=== PATIENT | male | born 1980 ===

== ENCOUNTER 2020-12-02 17:13 | Inpatient (IN) ==
[2020-12-02 17:53] LABS: Basophils % 0.1 % (0.0-0.8); Eosinophils % 0.1 % (0.00-10.9); Hematocrit 27.5 VOL% (42.0-52.0); Hemoglobin 10.2 GM/DL (14.0-18.0); Immature Granulocytes % 0.9 %; Lymphocytes # 0.8 10*3/uL (1.4-4.0); Lymphocytes % 7.1 % (21.2-54.2); Mean Corpuscular HGB Conc 37.1 GM/DL (32-36); Mean Corpuscular Volume 98.2 FL (87-102); Monocytes % 8.1 % (1.7-12.7); NRBC # 0.07 10*3/uL; Neutrophils % 83.7 % (38.7-73.9); Platelet Count 127 T/CUMM (130-400); Red Cell Distribution Width 11.9 % (9.3-17.3); White Blood Count 10.8 T/CUMM (4-12)
[2020-12-02 18:07] LABS: Alanine Aminotransferase 76 U/L (16-61); Albumin 1.7 G/DL (3.4-5.0); Alkaline Phosphatase 230 U/L (45-117); Aspartate Amino Transferase 231 U/L (0-37); Blood Urea Nitrogen 7 MG/DL (7-18); Calcium 7.2 MG/DL (8.5-10.1); Carbon Dioxide 13 MMOL/L (21-32); Estimated Glom Filtration Rate 131 ML/MIN; Glucose 87 MG/DL (74-106); Osmolality,Calculated 212.2 MOS/KG (273-304); Potassium 4.8 MMOL/L (3.5-5.1); Total Protein 6.5 G/DL (6.4-8.3)
[2020-12-02 18:10] LABS: Sodium 106 MMOL/L (136-145)
[2020-12-02] MEDS ORDERED: LEVOFLOXACIN INJ 500 MG in PREMIX 1 EACH IV STA (18:26)
[2020-12-02] MEDS ORDERED: THIAMINE INJ 100 MG, FOLIC ACID INJ 1 MG, MAGNESIUM SULF INJ 2 GM, MULTIVITAMIN INJ 10 ... IV ONE (18:27)
[2020-12-02] MEDS ORDERED: ACETAMINOPHEN 325 MG TABLET PO PRN (18:45)
[2020-12-02] MEDS ORDERED: ONDANSETRON 4 MG/2 ML VIAL IV PRN (18:45)
[2020-12-02] MEDS ORDERED: ALBUTEROL 2.5 MG/3 ML NEB RESP TX PRN (18:45)
[2020-12-02] MEDS ORDERED: SODIUM CHLORIDE 3% INJ 500 ML IV SCH (19:00)
[2020-12-02] MEDS ORDERED: LORazepam 2 MG/1 ML VIAL IV PRN (19:15)
[2020-12-02 19:27] LABS: Calcium 7.4 MG/DL (8.5-10.1); Potassium 4.1 MMOL/L (3.5-5.1)
[2020-12-02] MEDS: SODIUM CHLORIDE 0.9% 1,000 ML IV SCH (19:30)
[2020-12-02] MEDS: PANTOPRAZOLE 40 MG VIAL IV SCH (19:33)
[2020-12-02] MEDS ORDERED: HYDROCORTISONE 100 MG VIAL IV ONE (19:45)
[2020-12-02 20:30] LABS: ABG Base Excess -9.7 MMOL/L (-2.5-2.5); ABG HCO3 16.6 MMOL/L (20-26); ABG Oxygen Saturation 95.8 % (95-100); ABG PH 7.416 (7.35-7.45); ABG TCO2 12.4 MMOL/L (23-27)
[2020-12-02 21:28] LABS: Calcium 7.5 MG/DL (8.5-10.1); Osmolality,Calculated 220.6 MOS/KG (273-304); Potassium 4.1 MMOL/L (3.5-5.1)
[2020-12-02 23:50] LABS: Calcium 6.9 MG/DL (8.5-10.1); Osmolality,Calculated 218.7 MOS/KG (273-304); Potassium 4.5 MMOL/L (3.5-5.1)
[2020-12-03] MEDS: chlordiazePOXIDE 25 MG CAPSULE PO SCH ×5 (00:47→23:25)
[2020-12-03] MEDS ORDERED: DESMOPRESSIN 4 MCG/1 ML AMP SUBCUT SCH (01:30)
[2020-12-03 01:35] LABS: Calcium 7.3 MG/DL (8.5-10.1); Osmolality,Calculated 216.9 MOS/KG (273-304); Potassium 4.3 MMOL/L (3.5-5.1)
[2020-12-03 03:43] LABS: Basophils % 0.1 % (0.0-0.8); Hematocrit 27.2 VOL% (42.0-52.0); Immature Granulocytes % 0.7 %; Immature Granulocytes Absolute 0.07 #; Lymphocytes # 0.5 10*3/uL (1.4-4.0); Lymphocytes % 5.3 % (21.2-54.2); Mean Corpuscular HGB Conc 36.8 GM/DL (32-36); Mean Corpuscular Volume 96.1 FL (87-102); Monocytes % 9.8 % (1.7-12.7); NRBC # 0.06 10*3/uL; Neutrophils % 84.1 % (38.7-73.9); Platelet Count 123 T/CUMM (130-400); Red Blood Count 2.83 MC/CUMM (3.8-5.5)
[2020-12-03 03:57] LABS: Calcium 7.3 MG/DL (8.5-10.1); Osmolality,Calculated 216.9 MOS/KG (273-304); Potassium 3.9 MMOL/L (3.5-5.1)
[2020-12-03 04:00] LABS: Hypochromasia 1+; Macrocytosis Slight
[2020-12-03 04:01] LABS: Platelet Estimate Adequate
[2020-12-03 04:07] LABS: PT Patient Result 30.5 SECS (9.8-11.9)
[2020-12-03] MEDS: HYDROCORTISONE 100 MG VIAL IV SCH ×3 (05:18→19:52)
[2020-12-03 05:52] LABS: Calcium 7.7 MG/DL (8.5-10.1); Osmolality,Calculated 216.9 MOS/KG (273-304); Potassium 4.2 MMOL/L (3.5-5.1)
[2020-12-03 06:27] LABS: Albumin 1.6 G/DL (3.4-5.0); Bilirubin,Total 8.8 MG/DL (0.2-1.0); Calcium 7.5 MG/DL (8.5-10.1); Total Protein 6.3 G/DL (6.4-8.3)
[2020-12-03 06:32] LABS: Osmolality,Calculated 216.9 MOS/KG (273-304)
[2020-12-03 06:33] LABS: Potassium 4.2 MMOL/L (3.5-5.1)
[2020-12-03 08:33] LABS: Calcium 7.3 MG/DL (8.5-10.1); Osmolality,Calculated 220.6 MOS/KG (273-304); Potassium 4.3 MMOL/L (3.5-5.1)
[2020-12-03] MEDS: FOLIC ACID 1 MG TABLET PO SCH (10:30)
[2020-12-03] MEDS: THIAMINE 100 MG TABLET PO SCH (10:30)
[2020-12-03] MEDS: SODIUM CHLORIDE 0.9% 1,000 ML IV SCH (11:21)
[2020-12-03] MEDS: PHYTONADIONE 5 MG/5 ML ORAL.SYR PO SCH (12:45)
[2020-12-03] MEDS ORDERED: SODIUM CHLORIDE 0.9% 1,000 ML IV SCH (15:00)
[2020-12-03] MEDS ORDERED: FUROSEMIDE 40 MG/4 ML VIAL IV ONE (16:32)
[2020-12-03] MEDS: PANTOPRAZOLE 40 MG VIAL IV SCH (18:13)
[2020-12-04 04:29] LABS: INR 2.5; PT Patient Result 25.3 SECS (9.8-11.9)
[2020-12-04] MEDS: HYDROCORTISONE 100 MG VIAL IV SCH ×2 (04:31→16:30)
[2020-12-04 04:45] LABS: Calcium 7.2 MG/DL (8.5-10.1); Osmolality,Calculated 223.5 MOS/KG (273-304); Potassium 4.5 MMOL/L (3.5-5.1)
[2020-12-04] MEDS: chlordiazePOXIDE 25 MG CAPSULE PO SCH ×3 (06:28→19:03)
[2020-12-04] MEDS: THIAMINE 100 MG TABLET PO SCH (08:04)
[2020-12-04] MEDS: PHYTONADIONE 5 MG/5 ML ORAL.SYR PO SCH (08:04)
[2020-12-04] MEDS: FOLIC ACID 1 MG TABLET PO SCH (08:04)
[2020-12-04 11:20] LABS: Hepatitis B Core IgM Quant 0.14 Index; Hepatitis B Surface Ag Quant < 0.10 Index; Hepatitis B Surface Ag Result Non-Reactive (NonReactive); Hepatitis C Virus Ab Quant 0.24 Index; Hepatitis C Virus Ab Result Non-Reactive (NonReactive)
[2020-12-04] MEDS: PANTOPRAZOLE 40 MG VIAL IV SCH (19:02)
[2020-12-05] MEDS: chlordiazePOXIDE 25 MG CAPSULE PO SCH ×4 (00:51→17:33)
[2020-12-05 03:26] LABS: INR 2.1; PT Patient Result 21.7 SECS (9.8-11.9)
[2020-12-05 04:31] LABS: Albumin 1.4 G/DL (3.4-5.0); Bilirubin,Total 10.6 MG/DL (0.2-1.0); Calcium 7.7 MG/DL (8.5-10.1); Osmolality,Calculated 226.3 MOS/KG (273-304); Potassium 4.2 MMOL/L (3.5-5.1)
[2020-12-05] MEDS: HYDROCORTISONE 100 MG VIAL IV SCH ×2 (04:50→15:47)
[2020-12-05] MEDS: PHYTONADIONE 5 MG/5 ML ORAL.SYR PO SCH (08:22)
[2020-12-05] MEDS: FOLIC ACID 1 MG TABLET PO SCH (08:22)
[2020-12-05] MEDS: THIAMINE 100 MG TABLET PO SCH (08:22)
[2020-12-05 15:43] LABS: Antinuclear Ab, S 0.2 U
[2020-12-05] MEDS: PANTOPRAZOLE 40 MG VIAL IV SCH (18:13)
[2020-12-06] MEDS: chlordiazePOXIDE 25 MG CAPSULE PO SCH ×5 (00:24→23:34)
[2020-12-06] MEDS: HYDROCORTISONE 100 MG VIAL IV SCH ×2 (05:43→16:47)
[2020-12-06] MEDS: FOLIC ACID 1 MG TABLET PO SCH (08:47)
[2020-12-06] MEDS: THIAMINE 100 MG TABLET PO SCH (08:47)
[2020-12-06 10:58] LABS: Basophils % 0.1 % (0.0-0.8); Eosinophils % 0.4 % (0.00-10.9); Hematocrit 28.1 VOL% (42.0-52.0); Hemoglobin 10.2 GM/DL (14.0-18.0); Immature Granulocytes % 1.3 %; Immature Granulocytes Absolute 0.14 #; Lymphocytes # 0.7 10*3/uL (1.4-4.0); Lymphocytes % 6.3 % (21.2-54.2); Mean Corpuscular HGB Conc 36.3 GM/DL (32-36); Mean Corpuscular Volume 99.3 FL (87-102); Mean Platelet Volume 9.3 FL (9.6-12.0); Monocytes % 12.1 % (1.7-12.7); NRBC # 0.09 10*3/uL; Neutrophils % 79.8 % (38.7-73.9); Platelet Count 102 T/CUMM (130-400); Red Blood Count 2.83 MC/CUMM (3.8-5.5); Red Cell Distribution Width 12.7 % (9.3-17.3)
[2020-12-06 11:21] LABS: Albumin 1.4 G/DL (3.4-5.0); Bilirubin,Total 10.8 MG/DL (0.2-1.0); Calcium 7.9 MG/DL (8.5-10.1); Osmolality,Calculated 231.9 MOS/KG (273-304); Potassium 4.2 MMOL/L (3.5-5.1); Total Protein 5.9 G/DL (6.4-8.3)
[2020-12-06] MEDS: PANTOPRAZOLE 40 MG VIAL IV SCH (18:14)
[2020-12-07] MEDS: HYDROCORTISONE 100 MG VIAL IV SCH ×2 (05:13→16:22)
[2020-12-07] MEDS: chlordiazePOXIDE 25 MG CAPSULE PO SCH ×3 (05:14→18:15)
[2020-12-07 05:15] LABS: Risk Ratio 4.73; VLDL CHOLESTEROL 18.8 MG/DL
[2020-12-07] MEDS: THIAMINE 100 MG TABLET PO SCH (08:11)
[2020-12-07] MEDS: FOLIC ACID 1 MG TABLET PO SCH (08:11)
[2020-12-07 08:23] LABS: Basophils % 0.2 % (0.0-0.8); Eosinophils % 0.3 % (0.00-10.9); Hematocrit 30.7 VOL% (42.0-52.0); Hemoglobin 10.5 GM/DL (14.0-18.0); Immature Granulocytes Absolute 0.23 #; Lymphocytes # 0.9 10*3/uL (1.4-4.0); Lymphocytes % 7.7 % (21.2-54.2); Mean Corpuscular HGB Conc 34.2 GM/DL (32-36); Mean Corpuscular Volume 106.2 FL (87-102); Mean Platelet Volume 9.5 FL (9.6-12.0); Monocytes % 13.4 % (1.7-12.7); NRBC # 0.07 10*3/uL; Neutrophils % 76.4 % (38.7-73.9); Platelet Count 92 T/CUMM (130-400); Red Blood Count 2.89 MC/CUMM (3.8-5.5); Red Cell Distribution Width 13.3 % (9.3-17.3); White Blood Count 11.8 T/CUMM (4-12)
[2020-12-07 08:34] LABS: Osmolality,Calculated 237.5 MOS/KG (273-304); Potassium 4.3 MMOL/L (3.5-5.1)
[2020-12-07 11:50] LABS: Calcium 7.7 MG/DL (8.5-10.1); Osmolality,Calculated 240.3 MOS/KG (273-304); Potassium 4.5 MMOL/L (3.5-5.1)
[2020-12-07] MEDS: THIAMINE INJ 100 MG, FOLIC ACID INJ 1 MG, MULTIVITAMIN INJ 10 ML in DEXTROSE 5% NACL 0.... IV SCH (13:55)
[2020-12-07] MEDS: PANTOPRAZOLE 40 MG VIAL IV SCH (18:15)
[2020-12-08] MEDS: chlordiazePOXIDE 25 MG CAPSULE PO SCH ×4 (00:26→18:01)
[2020-12-08] MEDS: HYDROCORTISONE 100 MG VIAL IV SCH ×2 (03:51→16:28)
[2020-12-08 04:20] LABS: Basophils % 0.1 % (0.0-0.8); Eosinophils % 0.4 % (0.00-10.9); Hematocrit 27.1 VOL% (42.0-52.0); Immature Granulocytes % 1.9 %; Immature Granulocytes Absolute 0.17 #; Lymphocytes # 0.7 10*3/uL (1.4-4.0); Lymphocytes % 7.8 % (21.2-54.2); Mean Corpuscular HGB Conc 36.9 GM/DL (32-36); Mean Corpuscular Volume 98.9 FL (87-102); Mean Platelet Volume 9.8 FL (9.6-12.0); Monocytes % 13.5 % (1.7-12.7); NRBC # 0.03 10*3/uL; Neutrophils % 76.3 % (38.7-73.9); Platelet Count 66 T/CUMM (130-400); Red Blood Count 2.74 MC/CUMM (3.8-5.5); Red Cell Distribution Width 13.5 % (9.3-17.3)
[2020-12-08 04:58] LABS: Calcium 7.4 MG/DL (8.5-10.1); Osmolality,Calculated 247.1 MOS/KG (273-304); Potassium 5.2 MMOL/L (3.5-5.1)
[2020-12-08] MEDS: FOLIC ACID 1 MG TABLET PO SCH (08:18)
[2020-12-08] MEDS: THIAMINE 100 MG TABLET PO SCH (08:18)
[2020-12-08] MEDS: THIAMINE INJ 100 MG, FOLIC ACID INJ 1 MG, MULTIVITAMIN INJ 10 ML in DEXTROSE 5% NACL 0.... IV SCH (12:17)
[2020-12-08] MEDS: POLYETHYLENE GLYCOL POWDER 17 GM PACK PO SCH (20:52)
[2020-12-08] MEDS: SODIUM BICARBONATE 650 MG TABLET PO SCH (20:52)
[2020-12-08] MEDS: PANTOPRAZOLE 40 MG VIAL IV SCH (20:54)
[2020-12-09] MEDS: chlordiazePOXIDE 25 MG CAPSULE PO SCH ×4 (00:16→17:16)
[2020-12-09] MEDS: HYDROCORTISONE 100 MG VIAL IV SCH ×2 (03:25→17:20)
[2020-12-09 03:57] LABS: Basophils % 0.1 % (0.0-0.8); Eosinophils % 0.1 % (0.00-10.9); Hematocrit 29.1 VOL% (42.0-52.0); Hemoglobin 10.3 GM/DL (14.0-18.0); Immature Granulocytes % 2.7 %; Immature Granulocytes Absolute 0.27 #; Lymphocytes # 0.8 10*3/uL (1.4-4.0); Lymphocytes % 8.4 % (21.2-54.2); Mean Corpuscular HGB Conc 35.4 GM/DL (32-36); Mean Corpuscular Volume 102.1 FL (87-102); Monocytes % 12.8 % (1.7-12.7); NRBC # 0.04 10*3/uL; Neutrophils % 75.9 % (38.7-73.9); Red Blood Count 2.85 MC/CUMM (3.8-5.5); Red Cell Distribution Width 13.7 % (9.3-17.3)
[2020-12-09 04:12] LABS: Calcium 7.6 MG/DL (8.5-10.1); Osmolality,Calculated 256.4 MOS/KG (273-304); Potassium 4.1 MMOL/L (3.5-5.1)
[2020-12-09 04:18] LABS: Platelet Count 77 T/CUMM (130-400)
[2020-12-09 04:29] LABS: Band Neutrophils 1 % (0-10); Eosinophils 1 % (0-10); Hypochromasia 1+; Lymphocytes 3 % (20-55); Microcytosis 1+; Platelet Estimate Decreased; Segmented Neutrophils 86 % (50-85); Total Cells Counted 100
[2020-12-09 07:45] LABS: INR 1.9
[2020-12-09] MEDS: SODIUM BICARBONATE 650 MG TABLET PO SCH (08:00)
[2020-12-09] MEDS: POLYETHYLENE GLYCOL POWDER 17 GM PACK PO SCH (08:01)
[2020-12-09] MEDS: THIAMINE 100 MG TABLET PO SCH (08:01)
[2020-12-09] MEDS: FOLIC ACID 1 MG TABLET PO SCH (08:02)
[2020-12-09 09:12] LABS: Albumin 1.4 G/DL (3.4-5.0); Bilirubin,Direct 7.39 MG/DL (0.0-0.20); Bilirubin,Indirect 2.2 MG/DL (0.0-1.0); Bilirubin,Total 9.6 MG/DL (0.2-1.0)
[2020-12-09] MEDS: THIAMINE INJ 100 MG, FOLIC ACID INJ 1 MG, MULTIVITAMIN INJ 10 ML in DEXTROSE 5% NACL 0.... IV SCH (14:30)
[2020-12-09] MEDS: PANTOPRAZOLE 40 MG VIAL IV SCH (22:18)
[2020-12-10] MEDS: SODIUM BICARBONATE 650 MG TABLET PO SCH ×3 (01:26→22:28)
[2020-12-10] MEDS: chlordiazePOXIDE 25 MG CAPSULE PO SCH ×2 (01:26→06:05)
[2020-12-10 04:15] LABS: Basophils % 0.3 % (0.0-0.8); Eosinophils % 0.4 % (0.00-10.9); Hematocrit 29.2 VOL% (42.0-52.0); Hemoglobin 10.7 GM/DL (14.0-18.0); Immature Granulocytes % 1.4 %; Immature Granulocytes Absolute 0.16 #; Lymphocytes # 0.9 10*3/uL (1.4-4.0); Lymphocytes % 7.8 % (21.2-54.2); Mean Corpuscular HGB Conc 36.6 GM/DL (32-36); Mean Corpuscular Volume 100.7 FL (87-102); Mean Platelet Volume 10.2 FL (9.6-12.0); Monocytes % 8.5 % (1.7-12.7); NRBC # 0.09 10*3/uL; Neutrophils % 81.6 % (38.7-73.9); Platelet Count 59 T/CUMM (130-400); Red Cell Distribution Width 14.5 % (9.3-17.3); White Blood Count 11.2 T/CUMM (4-12)
[2020-12-10 04:35] LABS: INR 1.9; PT Patient Result 19.5 SECS (9.8-11.9)
[2020-12-10 04:37] LABS: Hypochromasia 1+; Lymphocytes 3 % (20-55); Microcytosis 1+; Platelet Estimate Decreased; Segmented Neutrophils 89 % (50-85); Total Cells Counted 100
[2020-12-10 04:49] LABS: Albumin 1.3 G/DL (3.4-5.0); Bilirubin,Total 8.8 MG/DL (0.2-1.0); Calcium 7.5 MG/DL (8.5-10.1); Osmolality,Calculated 254.4 MOS/KG (273-304); Potassium 4.5 MMOL/L (3.5-5.1); Total Protein 5.7 G/DL (6.4-8.3)
[2020-12-10] MEDS: HYDROCORTISONE 100 MG VIAL IV SCH ×2 (05:23→17:17)
[2020-12-10] MEDS: POLYETHYLENE GLYCOL POWDER 17 GM PACK PO SCH (08:40)
[2020-12-10] MEDS: THIAMINE INJ 100 MG, FOLIC ACID INJ 1 MG, MULTIVITAMIN INJ 10 ML in DEXTROSE 5% NACL 0.... IV SCH (13:17)
[2020-12-10] MEDS ORDERED: PHYTONADIONE 5 MG/5 ML ORAL.SYR PO ONE (18:35)
[2020-12-10] MEDS ORDERED: PHYTONADIONE 10 MG/1 ML AMP SUBCUT ONE (20:28)
[2020-12-10] MEDS: PANTOPRAZOLE 40 MG VIAL IV SCH (22:26)
[2020-12-11] MEDS: HYDROCORTISONE 100 MG VIAL IV SCH ×2 (04:17→16:34)
[2020-12-11 05:52] LABS: Basophils % 0.3 % (0.0-0.8); Eosinophils % 0.3 % (0.00-10.9); Hematocrit 32.9 VOL% (42.0-52.0); Immature Granulocytes % 0.8 %; Lymphocytes % 8.1 % (21.2-54.2); Mean Corpuscular HGB Conc 33.4 GM/DL (32-36); Mean Platelet Volume 10.6 FL (9.6-12.0); Monocytes % 7.3 % (1.7-12.7); NRBC # 0.04 10*3/uL; Neutrophils % 83.2 % (38.7-73.9); Platelet Count 53 T/CUMM (130-400); Red Blood Count 2.99 MC/CUMM (3.8-5.5); Red Cell Distribution Width 15.4 % (9.3-17.3); White Blood Count 11.8 T/CUMM (4-12)
[2020-12-11 05:59] LABS: INR 1.9; PT Patient Result 19.3 SECS (9.8-11.9)
[2020-12-11 06:10] LABS: Albumin 1.2 G/DL (3.4-5.0); Bilirubin,Total 8.9 MG/DL (0.2-1.0); Calcium 7.8 MG/DL (8.5-10.1); Osmolality,Calculated 263.8 MOS/KG (273-304); Potassium 4.2 MMOL/L (3.5-5.1); Total Protein 5.7 G/DL (6.4-8.3)
[2020-12-11 07:00] LABS: Band Neutrophils 1 % (0-10); Lymphocytes 4 % (20-55); Platelet Estimate Decreased; Segmented Neutrophils 90 % (50-85); Total Cells Counted 100
[2020-12-11] MEDS: SODIUM BICARBONATE 650 MG TABLET PO SCH ×2 (08:03→22:46)
[2020-12-11] MEDS: POLYETHYLENE GLYCOL POWDER 17 GM PACK PO SCH (08:03)
[2020-12-11] MEDS: THIAMINE INJ 100 MG, FOLIC ACID INJ 1 MG, MULTIVITAMIN INJ 10 ML in DEXTROSE 5% NACL 0.... IV SCH (13:39)
[2020-12-11 14:17] LABS: Neutrophils,Peritoneal Fluid 79 %
[2020-12-11 16:33] LABS: RBC,Peritoneal Fluid < 1 T/CUMM
[2020-12-11] MEDS: PANTOPRAZOLE 40 MG VIAL IV SCH (22:46)
[2020-12-12] MEDS: HYDROCORTISONE 100 MG VIAL IV SCH ×2 (03:48→17:00)
[2020-12-12 05:41] LABS: Basophils % 0.1 % (0.0-0.8); Eosinophils % 0.2 % (0.00-10.9); Hematocrit 30.2 VOL% (42.0-52.0); Hemoglobin 10.6 GM/DL (14.0-18.0); Immature Granulocytes % 0.7 %; Immature Granulocytes Absolute 0.08 #; Lymphocytes # 0.9 10*3/uL (1.4-4.0); Lymphocytes % 7.4 % (21.2-54.2); Mean Corpuscular HGB Conc 35.1 GM/DL (32-36); Mean Corpuscular Volume 105.2 FL (87-102); Mean Platelet Volume 10.8 FL (9.6-12.0); Monocytes % 6.8 % (1.7-12.7); NRBC # 0.03 10*3/uL; Neutrophils % 84.8 % (38.7-73.9); Red Blood Count 2.87 MC/CUMM (3.8-5.5); Red Cell Distribution Width 15.6 % (9.3-17.3); White Blood Count 12.1 T/CUMM (4-12)
[2020-12-12 05:42] LABS: Platelet Count 49 T/CUMM (130-400)
[2020-12-12 06:06] LABS: Albumin 1.3 G/DL (3.4-5.0); Calcium 7.1 MG/DL (8.5-10.1); Potassium 4.1 MMOL/L (3.5-5.1); Total Protein 5.6 G/DL (6.4-8.3)
[2020-12-12 06:06] LABS: Albumin 1.3 G/DL (3.4-5.0); Bilirubin,Direct 6.31 MG/DL (0.0-0.20); Bilirubin,Indirect 2.7 MG/DL (0.0-1.0); Total Protein 5.5 G/DL (6.4-8.3)
[2020-12-12 06:22] LABS: Band Neutrophils 2 % (0-10); Lymphocytes 3 % (20-55); Metamyelocytes 1 %; Platelet Estimate Decreased; Segmented Neutrophils 90 % (50-85); Total Cells Counted 100
[2020-12-12] MEDS: POLYETHYLENE GLYCOL POWDER 17 GM PACK PO SCH (08:35)
[2020-12-12] MEDS: SODIUM BICARBONATE 650 MG TABLET PO SCH ×2 (08:35→20:50)
[2020-12-12] MEDS: THIAMINE INJ 100 MG, FOLIC ACID INJ 1 MG, MULTIVITAMIN INJ 10 ML in DEXTROSE 5% NACL 0.... IV SCH (12:19)
[2020-12-12] MEDS: CIPROFLOXACIN INJ 400 MG in PREMIX 1 EACH IV SCH (17:39)
[2020-12-12] MEDS: PANTOPRAZOLE 40 MG VIAL IV SCH (20:50)
[2020-12-13] MEDS: HYDROCORTISONE 100 MG VIAL IV SCH ×2 (03:08→17:06)
[2020-12-13] MEDS: CIPROFLOXACIN INJ 400 MG in PREMIX 1 EACH IV SCH ×2 (03:10→17:08)
[2020-12-13 05:36] LABS: Basophils % 0.1 % (0.0-0.8); Eosinophils % 0.1 % (0.00-10.9); Hematocrit 30.8 VOL% (42.0-52.0); Hemoglobin 10.6 GM/DL (14.0-18.0); Immature Granulocytes % 0.8 %; Immature Granulocytes Absolute 0.09 #; Lymphocytes # 0.5 10*3/uL (1.4-4.0); Lymphocytes % 4.1 % (21.2-54.2); Mean Corpuscular HGB Conc 34.4 GM/DL (32-36); Mean Corpuscular Volume 105.8 FL (87-102); Mean Platelet Volume 10.4 FL (9.6-12.0); Monocytes % 6.2 % (1.7-12.7); NRBC # 0.03 10*3/uL; Neutrophils % 88.7 % (38.7-73.9); Red Blood Count 2.91 MC/CUMM (3.8-5.5); Red Cell Distribution Width 15.9 % (9.3-17.3); White Blood Count 11.5 T/CUMM (4-12)
[2020-12-13 05:38] LABS: Platelet Count 31 T/CUMM (130-400)
[2020-12-13 05:58] LABS: Albumin 1.1 G/DL (3.4-5.0); Bilirubin,Total 8.7 MG/DL (0.2-1.0); Calcium 7.4 MG/DL (8.5-10.1); Osmolality,Calculated 277.1 MOS/KG (273-304); Potassium 4.4 MMOL/L (3.5-5.1); Total Protein 5.5 G/DL (6.4-8.3)
[2020-12-13 06:02] LABS: Band Neutrophils 2 % (0-10); Hypochromasia Slight; Lymphocytes 2 % (20-55); Macrocytosis Slight; Nucleated Red Blood Cells 1 (0-5); Platelet Estimate Decreased; Segmented Neutrophils 94 % (50-85); Total Cells Counted 100
[2020-12-13] MEDS: SODIUM BICARBONATE 650 MG TABLET PO SCH ×2 (09:29→21:41)
[2020-12-13] MEDS: LACTULOSE 20 GM/30 ML UDCUP PO SCH ×2 (09:29→21:40)
[2020-12-13] MEDS: POLYETHYLENE GLYCOL POWDER 17 GM PACK PO SCH (09:29)
[2020-12-13] MEDS: RIFAXIMIN 550 MG TABLET PO SCH ×2 (09:29→21:41)
[2020-12-13] MEDS ORDERED: SODIUM CHLORIDE 0.9% 1,000 ML IV ONE (12:06)
[2020-12-13] MEDS: THIAMINE INJ 100 MG, FOLIC ACID INJ 1 MG, MULTIVITAMIN INJ 10 ML in DEXTROSE 5% NACL 0.... IV SCH (13:37)
[2020-12-13] MEDS ORDERED: LORazepam 2 MG/1 ML VIAL IV ONE (15:46)
[2020-12-13] MEDS: PANTOPRAZOLE 40 MG VIAL IV SCH (21:41)
[2020-12-14] MEDS: CIPROFLOXACIN INJ 400 MG in PREMIX 1 EACH IV SCH ×2 (03:00→13:13)
[2020-12-14] MEDS: HYDROCORTISONE 100 MG VIAL IV SCH ×2 (05:16→15:06)
[2020-12-14 07:01] LABS: Basophils % 0.1 % (0.0-0.8); Eosinophils % 0.3 % (0.00-10.9); Hematocrit 30.5 VOL% (42.0-52.0); Hemoglobin 10.4 GM/DL (14.0-18.0); Immature Granulocytes % 0.8 %; Immature Granulocytes Absolute 0.07 #; Lymphocytes # 0.7 10*3/uL (1.4-4.0); Lymphocytes % 7.9 % (21.2-54.2); Mean Corpuscular HGB Conc 34.1 GM/DL (32-36); Monocytes % 9.4 % (1.7-12.7); NRBC # 0.02 10*3/uL; Neutrophils % 81.5 % (38.7-73.9); Red Blood Count 2.85 MC/CUMM (3.8-5.5); Red Cell Distribution Width 15.9 % (9.3-17.3); White Blood Count 8.7 T/CUMM (4-12)
[2020-12-14 07:06] LABS: INR 1.6; PT Patient Result 17.2 SECS (9.8-11.9)
[2020-12-14 07:11] LABS: Bilirubin,Total 8.8 MG/DL (0.2-1.0); Calcium 7.5 MG/DL (8.5-10.1); Osmolality,Calculated 278.8 MOS/KG (273-304); Total Protein 5.6 G/DL (6.4-8.3)
[2020-12-14 07:14] LABS: Platelet Count 26 T/CUMM (130-400)
[2020-12-14 07:25] LABS: Eosinophils 1 % (0-10); Hypochromasia 1+; Lymphocytes 5 % (20-55); Microcytosis 1+; Nucleated Red Blood Cells 1 (0-5); Platelet Estimate Decreased; Segmented Neutrophils 88 % (50-85); Total Cells Counted 100
[2020-12-14] MEDS: SODIUM BICARBONATE 650 MG TABLET PO SCH ×2 (09:25→21:10)
[2020-12-14] MEDS: LACTULOSE 20 GM/30 ML UDCUP PO SCH ×2 (09:26→21:10)
[2020-12-14] MEDS: POLYETHYLENE GLYCOL POWDER 17 GM PACK PO SCH (09:26)
[2020-12-14] MEDS: RIFAXIMIN 550 MG TABLET PO SCH ×2 (09:26→21:10)
[2020-12-14] MEDS: THIAMINE INJ 100 MG, FOLIC ACID INJ 1 MG, MULTIVITAMIN INJ 10 ML in DEXTROSE 5% NACL 0.... IV SCH (14:23)
[2020-12-14] MEDS: PANTOPRAZOLE 40 MG VIAL IV SCH (21:11)
[2020-12-15] MEDS: HYDROCORTISONE 100 MG VIAL IV SCH (04:00)
[2020-12-15] MEDS: CIPROFLOXACIN INJ 400 MG in PREMIX 1 EACH IV SCH ×2 (04:00→17:46)
[2020-12-15 05:52] LABS: Basophils % 0.1 % (0.0-0.8); Eosinophils % 0.2 % (0.00-10.9); Hemoglobin 9.9 GM/DL (14.0-18.0); Immature Granulocytes % 0.8 %; Immature Granulocytes Absolute 0.07 #; Lymphocytes # 0.6 10*3/uL (1.4-4.0); Lymphocytes % 6.6 % (21.2-54.2); Mean Corpuscular HGB Conc 34.1 GM/DL (32-36); Mean Corpuscular Volume 106.6 FL (87-102); Mean Platelet Volume 10.7 FL (9.6-12.0); Monocytes % 9.8 % (1.7-12.7); NRBC # 0.02 10*3/uL; Neutrophils % 82.5 % (38.7-73.9); Red Blood Count 2.72 MC/CUMM (3.8-5.5); Red Cell Distribution Width 15.5 % (9.3-17.3); White Blood Count 9.1 T/CUMM (4-12)
[2020-12-15 05:56] LABS: Platelet Count 23 T/CUMM (130-400)
[2020-12-15 06:19] LABS: Hypochromasia Slight; Lymphocytes 6 % (20-55); Microcytosis Slight; Platelet Estimate Decreased; Segmented Neutrophils 88 % (50-85); Total Cells Counted 100
[2020-12-15 06:30] LABS: Albumin 1.1 G/DL (3.4-5.0); Bilirubin,Total 8.4 MG/DL (0.2-1.0); Calcium 7.2 MG/DL (8.5-10.1); Potassium 4.2 MMOL/L (3.5-5.1); Total Protein 5.3 G/DL (6.4-8.3)
[2020-12-15] MEDS: LACTULOSE 20 GM/30 ML UDCUP PO SCH ×2 (09:58→21:14)
[2020-12-15] MEDS: POLYETHYLENE GLYCOL POWDER 17 GM PACK PO SCH (09:59)
[2020-12-15] MEDS: RIFAXIMIN 550 MG TABLET PO SCH ×2 (09:59→21:14)
[2020-12-15] MEDS: SODIUM BICARBONATE 650 MG TABLET PO SCH ×2 (09:59→21:14)
[2020-12-15 13:31] LABS: Folate 13.1 NG/ML (5.38-24.0); Vitamin B12 > 2000 PG/ML (211-911)
[2020-12-15] MEDS: methylPREDNISolone SOD SUC 125 MG/2 ML VIAL IV SCH (13:36)
[2020-12-15] MEDS: THIAMINE INJ 100 MG, FOLIC ACID INJ 1 MG, MULTIVITAMIN INJ 10 ML in DEXTROSE 5% NACL 0.... IV SCH (13:41)
[2020-12-15 13:49] LABS: Total Protein 5.5 G/DL (6.4-8.3)
[2020-12-15] MEDS: INSULIN REGULAR 100 UNIT/ML SUBCUT SCH ×2 (17:55→21:13)
[2020-12-15] MEDS: PANTOPRAZOLE 40 MG VIAL IV SCH (21:13)
[2020-12-16] MEDS: methylPREDNISolone SOD SUC 125 MG/2 ML VIAL IV SCH ×2 (00:12→12:44)
[2020-12-16] MEDS: INSULIN REGULAR 100 UNIT/ML SUBCUT SCH ×4 (00:12→18:26)
[2020-12-16] MEDS: CIPROFLOXACIN INJ 400 MG in PREMIX 1 EACH IV SCH ×2 (05:15→18:12)
[2020-12-16 05:50] LABS: Basophils % 0.1 % (0.0-0.8); Hematocrit 32.9 VOL% (42.0-52.0); Hemoglobin 10.8 GM/DL (14.0-18.0); Immature Granulocytes % 0.8 %; Immature Granulocytes Absolute 0.09 #; Lymphocytes # 0.2 10*3/uL (1.4-4.0); Lymphocytes % 1.3 % (21.2-54.2); Mean Corpuscular HGB Conc 32.8 GM/DL (32-36); Mean Corpuscular Volume 108.6 FL (87-102); Mean Platelet Volume 12.1 FL (9.6-12.0); Monocytes % 5.4 % (1.7-12.7); Neutrophils % 92.4 % (38.7-73.9); Red Blood Count 3.03 MC/CUMM (3.8-5.5); Red Cell Distribution Width 15.6 % (9.3-17.3)
[2020-12-16 05:54] LABS: Platelet Count 24 T/CUMM (130-400)
[2020-12-16 06:18] LABS: Band Neutrophils 1 % (0-10); Hypochromasia Slight; Lymphocytes 2 % (20-55); Microcytosis Slight; Platelet Estimate Decreased; Segmented Neutrophils 94 % (50-85); Total Cells Counted 100
[2020-12-16 06:19] LABS: Albumin 1.1 G/DL (3.4-5.0); Bilirubin,Total 8.6 MG/DL (0.2-1.0); Calcium 7.6 MG/DL (8.5-10.1); Osmolality,Calculated 295.7 MOS/KG (273-304); Potassium 4.5 MMOL/L (3.5-5.1); Total Protein 6.2 G/DL (6.4-8.3)
[2020-12-16 07:24] LABS: Total Protein (Chem) 5.5 G/DL (6.4-8.3)
[2020-12-16 07:25] LABS: Immunoglobulin A (Chem) 730 MG/DL (70-400); Immunoglobulin G (Chem) 1840 MG/DL (700-1600); Immunoglobulin M (Chem) 318 MG/DL (40-230)
[2020-12-16 09:40] LABS: Albumin (SPE) 1.8 G/DL (3.2-5.3); Albumin (SPE) Rel % 33.1 %; Alpha 1 (SPE) 0.2 G/DL (0.1-0.4); Alpha 1 (SPE) Rel % 3.5 %; Alpha 2 (SPE) 0.4 G/DL (0.4-1.0); Alpha 2 (SPE) Rel % 7.5 %; Beta (SPE) 0.4 G/DL (0.5-1.1); Gamma (SPE) 2.7 G/DL (0.7-1.7); Gamma (SPE) Rel % 48.9 %
[2020-12-16] MEDS: POLYETHYLENE GLYCOL POWDER 17 GM PACK PO SCH (10:06)
[2020-12-16] MEDS: RIFAXIMIN 550 MG TABLET PO SCH ×2 (10:06→22:23)
[2020-12-16] MEDS: LACTULOSE 20 GM/30 ML UDCUP PO SCH ×2 (10:06→22:23)
[2020-12-16] MEDS: SODIUM BICARBONATE 650 MG TABLET PO SCH ×2 (10:06→22:23)
[2020-12-16] MEDS: THIAMINE INJ 100 MG, FOLIC ACID INJ 1 MG, MULTIVITAMIN INJ 10 ML in DEXTROSE 5% NACL 0.... IV SCH (12:44)
[2020-12-16] MEDS: PANTOPRAZOLE 40 MG VIAL IV SCH (22:22)
[2020-12-16] MEDS: BACITRACIN OINT 0.9 GM PACK TOP SCH (22:23)
[2020-12-17] MEDS: methylPREDNISolone SOD SUC 125 MG/2 ML VIAL IV SCH ×2 (01:31→12:04)
[2020-12-17] MEDS: INSULIN REGULAR 100 UNIT/ML SUBCUT SCH ×5 (01:31→17:24)
[2020-12-17] MEDS: CIPROFLOXACIN INJ 400 MG in PREMIX 1 EACH IV SCH (03:31)
[2020-12-17 06:19] LABS: Basophils % 0.1 % (0.0-0.8); Hemoglobin 10.9 GM/DL (14.0-18.0); Immature Granulocytes % 0.6 %; Immature Granulocytes Absolute 0.08 #; Lymphocytes # 0.2 10*3/uL (1.4-4.0); Lymphocytes % 1.2 % (21.2-54.2); Mean Corpuscular HGB Conc 34.1 GM/DL (32-36); Mean Corpuscular Volume 108.8 FL (87-102); Mean Platelet Volume 12.7 FL (9.6-12.0); Monocytes % 6.1 % (1.7-12.7); Red Blood Count 2.94 MC/CUMM (3.8-5.5); Red Cell Distribution Width 16.1 % (9.3-17.3); White Blood Count 13.8 T/CUMM (4-12)
[2020-12-17 06:21] LABS: Platelet Count 26 T/CUMM (130-400)
[2020-12-17 06:40] LABS: Albumin 1.1 G/DL (3.4-5.0); Bilirubin,Total 7.7 MG/DL (0.2-1.0); Calcium 7.6 MG/DL (8.5-10.1); Lymphocytes 2 % (20-55); Osmolality,Calculated 310.1 MOS/KG (273-304); Platelet Estimate Decreased; Segmented Neutrophils 95 % (50-85); Total Cells Counted 100; Total Protein 5.9 G/DL (6.4-8.3)
[2020-12-17 06:41] LABS: Macrocytosis 1+
[2020-12-17] MEDS: POLYETHYLENE GLYCOL POWDER 17 GM PACK PO SCH (08:37)
[2020-12-17] MEDS: LACTULOSE 20 GM/30 ML UDCUP PO SCH ×2 (08:37→21:35)
[2020-12-17] MEDS: RIFAXIMIN 550 MG TABLET PO SCH ×2 (08:38→21:35)
[2020-12-17] MEDS: SODIUM BICARBONATE 650 MG TABLET PO SCH ×2 (08:38→21:35)
[2020-12-17] MEDS: BACITRACIN OINT 0.9 GM PACK TOP SCH ×3 (08:38→21:35)
[2020-12-17] MEDS: THIAMINE INJ 100 MG, FOLIC ACID INJ 1 MG, MULTIVITAMIN INJ 10 ML in DEXTROSE 5% NACL 0.... IV SCH (11:42)
[2020-12-17] MEDS: PANTOPRAZOLE 40 MG VIAL IV SCH (21:34)
[2020-12-18] MEDS: methylPREDNISolone SOD SUC 125 MG/2 ML VIAL IV SCH ×2 (00:57→13:00)
[2020-12-18] MEDS: INSULIN REGULAR 100 UNIT/ML SUBCUT SCH ×4 (00:57→19:06)
[2020-12-18 09:32] LABS: Basophils % 0.1 % (0.0-0.8); Hematocrit 32.3 VOL% (42.0-52.0); Hemoglobin 10.7 GM/DL (14.0-18.0); Immature Granulocytes % 0.8 %; Immature Granulocytes Absolute 0.13 #; Lymphocytes # 0.1 10*3/uL (1.4-4.0); Lymphocytes % 0.8 % (21.2-54.2); Mean Corpuscular HGB Conc 33.1 GM/DL (32-36); Mean Corpuscular Volume 110.6 FL (87-102); Mean Platelet Volume 12.5 FL (9.6-12.0); Monocytes % 5.8 % (1.7-12.7); NRBC # 0.02 10*3/uL; Neutrophils % 92.5 % (38.7-73.9); Red Blood Count 2.92 MC/CUMM (3.8-5.5); Red Cell Distribution Width 16.8 % (9.3-17.3); White Blood Count 15.7 T/CUMM (4-12)
[2020-12-18 09:37] LABS: Platelet Count 34 T/CUMM (130-400)
[2020-12-18 09:51] LABS: Albumin 1.1 G/DL (3.4-5.0); Bilirubin,Total 7.2 MG/DL (0.2-1.0); Calcium 7.3 MG/DL (8.5-10.1); Osmolality,Calculated 319.4 MOS/KG (273-304); Potassium 3.7 MMOL/L (3.5-5.1); Total Protein 5.8 G/DL (6.4-8.3)
[2020-12-18 10:30] LABS: Anisocytosis 2+; Band Neutrophils 9 % (0-10); Lymphocytes 2 % (20-55); Macrocytosis 2+; Platelet Estimate Decreased; Segmented Neutrophils 83 % (50-85); Total Cells Counted 100
[2020-12-18 10:31] LABS: Burr Cells 1+
[2020-12-18] MEDS: POLYETHYLENE GLYCOL POWDER 17 GM PACK PO SCH (10:38)
[2020-12-18] MEDS: SODIUM BICARBONATE 650 MG TABLET PO SCH ×2 (10:41→21:37)
[2020-12-18] MEDS: BACITRACIN OINT 0.9 GM PACK TOP SCH ×2 (10:41→19:05)
[2020-12-18] MEDS: LACTULOSE 20 GM/30 ML UDCUP PO SCH ×2 (10:41→21:37)
[2020-12-18] MEDS: RIFAXIMIN 550 MG TABLET PO SCH ×2 (10:42→21:37)
[2020-12-18] MEDS: DESITIN 4OZ/NYSTATIN 15 GRAM MIXTURE PASTE TOP SCH (10:42)
[2020-12-18] MEDS ORDERED: METOPROLOL TARTRATE 5 MG/5 ML VIAL IV ONE (13:57)
[2020-12-18 14:17] LABS: ABG Base Excess -3.7 MMOL/L (-2.5-2.5); ABG HCO3 21.3 MMOL/L (20-26); ABG Oxygen Saturation 94.2 % (95-100); ABG PCO2 25.1 MM HG (35-48); ABG PH 7.476 (7.35-7.45); ABG TCO2 16.6 MMOL/L (23-27)
[2020-12-18] MEDS: THIAMINE INJ 100 MG, FOLIC ACID INJ 1 MG, MULTIVITAMIN INJ 10 ML in DEXTROSE 5% NACL 0.... IV SCH (19:07)
[2020-12-18] MEDS: PANTOPRAZOLE 40 MG VIAL IV SCH (21:37)
[2020-12-19] MEDS: methylPREDNISolone SOD SUC 125 MG/2 ML VIAL IV SCH (01:31)
[2020-12-19] MEDS: INSULIN REGULAR 100 UNIT/ML SUBCUT SCH ×2 (01:32→05:57)
[2020-12-19] MEDS: DESITIN 4OZ/NYSTATIN 15 GRAM MIXTURE PASTE TOP SCH ×2 (01:50→19:03)
[2020-12-19] MEDS: BACITRACIN OINT 0.9 GM PACK TOP SCH ×2 (01:50→12:00)
[2020-12-19] MEDS: LACTULOSE 20 GM/30 ML UDCUP PO SCH (09:42)
[2020-12-19] MEDS: RIFAXIMIN 550 MG TABLET PO SCH (09:43)
[2020-12-19] MEDS: POLYETHYLENE GLYCOL POWDER 17 GM PACK PO SCH (09:43)
[2020-12-19] MEDS: SODIUM BICARBONATE 650 MG TABLET PO SCH (09:43)
[2020-12-19] MEDS ORDERED: MORPHINE 4 MG/1 ML VIAL IV PRN (11:06)
[2020-12-19] MEDS: MORPHINE 4 MG/1 ML VIAL IV PRN (19:55)
[2020-12-20] MEDS: MORPHINE 4 MG/1 ML VIAL IV PRN ×3 (00:11→09:53)
[2020-12-20] MEDS: BACITRACIN OINT 0.9 GM PACK TOP SCH ×2 (00:43→00:44)
[2020-12-20] MEDS: DESITIN 4OZ/NYSTATIN 15 GRAM MIXTURE PASTE TOP SCH (00:55)
[2020-12-20 09:20] VITALS: BP 71/36
== END 2020-12-20 10:22 | disposition expired | DRG 432 ==
LOC: EDBD → EDUNIT# → N.ED 17:13 → N.EDINP 18:45 → SUATTDRO 18:45 → N.CC 12-03 08:14 → N.4E 12-09 20:06
PROVIDERS: ADMIT Internal Medicine; ATTEND Family Medicine